=== PATIENT | male | born 1990 | race Caucasian/White ===

== ENCOUNTER 2021-09-04 09:30 | Emergency (ER) | payer OTHER ==
[2021-09-04] MEDS ORDERED: Sodium Chloride 0.9% 10 ML Syringe FLUSH PRN (09:57)
[2021-09-04] MEDS ORDERED: Sodium Chloride 0.9% 2.5 ML Syringe FLUSH PRN (09:57)
--- NOTE | 2021-09-04 09:57 | EDM.PDOC ---
ED HPI GENERAL MEDICAL PROBLEM - General Stated Complaint: progressivly worse pain lower abdominal R side Time Seen by Provider: 09/04/21 09:44 - History of Present Illness INITIAL COMMENTS - FREE TEXT/NARRATIVE: Otherwise well 31-year-old male presenting with 4 to 5 days of constant aching 5 out of 10 right lower quadrant pain some mild nausea but no vomiting and no change in appetite. No diarrhea. Patient has been trying Excedrin and Pepto- Bismol without improvement. No dysuria or hematuria no testicular pain. Pain improved with a heating pad but otherwise is constant but does not worsen with oral intake. And there is no radiation abdomen Pain Score (Numeric/FACES): 5 - Related Data Allergies Allergy/AdvReac Type Severity Reaction Status Date / Time No Known Allergies Allergy Verified 09/04/21 09:57 Home Meds: Home Meds lisinopriL [Lisinopril] 1 dose PO ASDIRECTED 09/04/21 [History] ED ROS GENERAL - Review of Systems Review Of Systems: See Below Free Text/Narrative/Comment: General: No fever. Skin: No rash. Eyes: No vision problems. ENT: No sore throat. Neck: No neck stiffness. Respiratory: No shortness of breath. Cardiac: No chest pain. Gastrointestinal: Per HPI Urinary: No dysuria. Musculoskeletal: No myalgias/arthralgias. Neurologic: No headache. ED EXAM, GENERAL - Physical Exam Exam: See Below Free Text/Narrative:: General Appearance: No acute distress, appears comfortable HEENT: Normocephalic/atraumatic, sclera anicteric, mucous membranes moist Neck: Normal range of motion Chest and Lungs: Bilateral breath sounds, clear to auscultation Cardiovascular: Regular rate and rhythm Abdomen: Soft, non-tender Back: Normal Musculoskeletal: No edema or tenderness Neurologic: Awake, alert, no obvious deficits, moving all extremities Psychiatric: Appropriate, cooperative Course - Vital Signs Last Recorded V/S: Last Vital Signs Temp 97.4 F 09/04/21 10:55 Pulse 94 09/04/21 10:55 Resp 18 09/04/21 10:55 BP 130/81 09/04/21 10:55 Pulse Ox 97 09/04/21 10:55 - Orders/Labs/Meds Orders: Active Orders 24 hr Category Date Time Status Sodium Chloride 0.9% [Saline Flush] Med 09/04/21 09:57 Active 10 ml FLUSH ASDIRECTED PRN Sodium Chloride 0.9% [Saline Flush] Med 09/04/21 09:57 Active 2.5 ml FLUSH ASDIRECTED PRN Saline Lock Insert [OM.PC] Stat Oth 09/04/21 09:57 Ordered Medication Orders Sodium Chloride (Sodium Chloride 0.9% 10 Ml Syringe) 10 ml FLUSH ASDIRECTED PRN PRN Reason: Keep Vein Open Last Admin: 09/04/21 10:56 Dose: 10 ml Documented by: WAN Sodium Chloride (Sodium Chloride 0.9% 2.5 Ml Syringe) 2.5 ml FLUSH ASDIRECTED PRN PRN Reason: Keep Vein Open Last Admin: 09/04/21 10:56 Dose: 2.5 ml Documented by: WAN Labs: Laboratory Tests 09/04/21 09/04/21 Range/Units 10:40 10:40 WBC 6.47 (4.0-11.0) K/uL RBC 5.30 (4.50-5.90) M/uL Hgb 16.8 (13.0-17.0) g/dL Hct 47.3 (38.0-50.0) % MCV 89.2 (80.0-98.0) fL MCH 31.7 (27.0-32.0) pg MCHC 35.5 (31.0-37.0) g/dL RDW Std Deviation 41.3 (28.0-62.0) fl RDW Coeff of Angelina 13 (11.0-15.0) % Plt Count 250 (150-400) K/uL MPV 10.60 (7.40-12.00) fL Neut % (Auto) 66.2 (48.0-80.0) % Lymph % (Auto) 26.7 (16.0-40.0) % [place] % (Auto) 5.9 (0.0-15.0) % Eos % (Auto) 0.6 (0.0-7.0) % Baso % (Auto) 0.6 (0.0-1.5) % Neut # (Auto) 4.3 (1.4-5.7) K/uL Lymph # (Auto) 1.7 (0.6-2.4) K/uL [place] # (Auto) 0.4 (0.0-0.8) K/uL Eos # (Auto) 0.0 (0.0-0.7) K/uL Baso # (Auto) 0.0 (0.0-0.1) K/uL Nucleated RBC % 0.0 /100WBC Nucleated RBCs # 0 K/uL Sodium 135 L (136-148) mmol/L Potassium 4.2 (3.5-5.1) mmol/L Chloride 99 (98-107) mmol/L Carbon Dioxide 26.0 (21.0-32.0) mmol/L BUN 13 (7.0-18.0) mg/dL Creatinine 0.8 (0.8-1.3) mg/dL Est Cr Clr Drug Dosing 139.41 mL/min Estimated GFR (MDRD) > 60.0 ml/min Glucose 127 H (74-106) mg/dL Calcium 9.0 (8.5-10.1) mg/dL Total Bilirubin 1.0 (0.2-1.0) mg/dL AST 20 (15-37) IU/L ALT 59 (14-63) IU/L Alkaline Phosphatase 64 (46-116) U/L Total Protein 7.7 (6.4-8.2) g/dL Albumin 4.3 (3.4-5.0) g/dL Globulin 3.4 (2.6-4.0) g/dL Albumin/Globulin Ratio 1.3 (0.9-1.6) Lipase 72 L (73-393) U/L Meds: Medications Generic Name Dose Route Start Last Admin Trade Name Freq PRN Reason Stop Dose Admin Sodium Chloride 10 ml 09/04/21 09:57 09/04/21 10:56 Sodium Chloride 0.9% 10 Ml Syringe FLUSH 10 ml ASDIRECTED PRN Administration Keep Vein Open Sodium Chloride 2.5 ml 09/04/21 09:57 09/04/21 10:56 Sodium Chloride 0.9% 2.5 Ml Syringe FLUSH 2.5 ml ASDIRECTED PRN Administration Keep Vein Open Discontinued Medications Generic Name Dose Route Start Last Admin Trade Name Freq PRN Reason Stop Dose Admin Iopamidol 100 ml 09/04/21 10:32 09/04/21 10:34 Iopamidol 755 Mg/Ml 500 Ml Multipack Bottle IVPUSH 09/04/21 10:33 100 ml ONETIME ONE Administration Departure - Departure Time of Disposition: 11:49 Disposition: Home, Self-Care 01 Condition: Good Clinical Impression: Mesenteric adenitis - Discharge Information *PRESCRIPTION DRUG MONITORING PROGRAM REVIEWED*: Not Applicable *COPY OF PRESCRIPTION DRUG MONITORING REPORT IN PATIENT MIKE: Not Applicable Instructions: Mesenteric Adenitis, Adult Referrals: Zachariah Colvin MD [Primary Care Provider] - 3 Days Additional Instructions: Your labs today were normal your CT scan showed findings of mesenteric adenitis in the part of your abdomen where you were sore. This is usually caused by a viral infection it can rarely be caused by specific bacterial infections. However, because you have no vomiting or diarrhea it is unlikely to be a bacterial infection at this point. Your symptoms should run their course over the next few days. However, if you develop a fever vomiting or diarrhea please call your doctor or return to the ER. The following information is given to patients seen in the emergency department who are being discharged to home. This information is to outline your options for follow-up care. We provide all patients seen in our emergency department with a follow-up referral. The need for follow-up, as well as the timing and circumstances, are variable depending upon the specifics of your emergency department visit. If you don't have a primary care physician on staff, we will provide you with a referral. We always advise you to contact your personal physician following an emergency department visit to inform them of the circumstance of the visit and for follow-up with them and/or the need for any referrals to a consulting specialist. The emergency department will also refer you to a specialist when appropriate. This referral assures that you have the opportunity for follow-up care with a specialist. All of these measure are taken in an effort to provide you with optimal care, which includes your follow-up. Under all circumstances we always encourage you to contact your private physician who remains a resource for coordinating your care. When calling for follow-up care, please make the office aware that this follow-up is from your recent emergency room visit. If for any reason you are refused follow-up, please contact the [facility] Emergency Department at and asked to speak to the emergency department charge nurse. Sepsis Event Note (ED) - Focused Exam Vital Signs: Vital Signs Temp Pulse Resp BP Pulse Ox 09/04/21 10:55 97.4 F 94 18 130/81 97 09/04/21 09:59 97.1 F 83 18 148/104 H 96 - My Orders Last 24 Hours: My Active Orders 09/04/21 09:57 Sodium Chloride 0.9% [Saline Flush] 10 ml FLUSH ASDIRECTED PRN Sodium Chloride 0.9% [Saline Flush] 2.5 ml FLUSH ASDIRECTED PRN Saline Lock Insert [OM.PC] Stat - Assessment/Plan Last 24 Hours: My Active Orders 09/04/21 09:57 Sodium Chloride 0.9% [Saline Flush] 10 ml FLUSH ASDIRECTED PRN Sodium Chloride 0.9% [Saline Flush] 2.5 ml FLUSH ASDIRECTED PRN Saline Lock Insert [OM.PC] Stat Assessment:: 31-year-old male presenting with 4 to 5 days of right lower quadrant abdominal pain. Functional abdominal pain is a consideration appendicitis is a consideration no testicular symptoms nothing suggest renal colic. Pain is moderate at this time. Labs and CT ordered.
[2021-09-04] MEDS ORDERED: Iopamidol 755 MG/ML 500 ML Multipack Bottle IVPUSH ONE (10:32)
--- NOTE | 2021-09-04 11:04 | CT ---
INDICATION: Right lower abdominal pain. TECHNIQUE: CT abdomen and pelvis with intravenous contrast, 100 mL of Isovue-370. Coronal and sagittal formats. COMPARISON: None available. FINDINGS: The imaged lower chest is unremarkable. Normal liver contour. Diffuse hepatic steatosis. Tiny subcentimeter hypoattenuating lesion in the lateral left hepatic lobe is too small to accurately characterize. Portal and hepatic veins patent. No biliary dilatation. The gallbladder, pancreas, spleen, and adrenals are unremarkable. Symmetric renal enhancement. No hydronephrosis bilaterally. Unremarkable bladder and prostate. The bowel appears normal in caliber and enhancement diffusely. The appendix measures up to 7 mm diameter, contains intraluminal contrast and gas, and is without appreciable inflammatory changes. No free air, free fluid, or focal collection. Multiple prominent lymph nodes in the right lower abdominal mesentery, including reference node measuring 0.9 cm short axis (series 201, image 100). No pelvic or retroperitoneal lymphadenopathy. Normal caliber abdominal aorta. The major branch vessels are patent. No suspicious osseous lesion. IMPRESSION: 1. Prominent subcentimeter right lower mesenteric lymph nodes as may be seen with mesenteric adenitis. 2. Appendix is at the upper limit of normal in size but without appreciable inflammatory changes to suggest acute appendicitis. 3. Diffuse hepatic steatosis. Dictated by Ilya Addison MD @ 09/04/2021 11:02:46 AM Please note that all CT scans at this facility use dose modulation, iterative reconstruction, and/or weight-based dosing when appropriate to reduce radiation dose to as low as reasonably achievable. Dictated by: Ilya Addison MD @ 09/04/2021 11:03:14 (Electronically Signed)
[2021-09-04 11:09] LABS: BLOOD UREA NITROGEN,BUN 13 mg/dL (7.0-18.0); CHLORIDE,CL 99 mmol/L (98-107); GLUCOSE RANDOM 127 mg/dL (74-106); LIPASE 72 U/L (73-393); POTASSIUM,K 4.2 mmol/L (3.5-5.1); SODIUM,NA 135 mmol/L (136-148)
[2021-09-04] MEDS ORDERED: Ketorolac 30 MG/ML SDV IVPUSH ONE (11:51)
== END 2021-09-04 12:22 | disposition home or self-care (01) ==
LOC: MW.ED 09:30
DX: I88.0 Nonspecific mesenteric lymphadenitis (principal); Z79.899 Other long term (current) drug therapy
CPT/HCPCS: 36415; 74177; 80053; 83690; 85025; 96374; 99284; J1885; Q9967